=== PATIENT | female | born 1995 | race Caucasian/White ===

== ENCOUNTER 2016-12-02 19:29 | Emergency (ER) | payer MEDICARE | END 2016-12-02 22:10 | disposition home or self-care (01) | LOC: ER 19:29 | DX: O99.89 Other specified diseases and conditions complicating pregnancy, childbirth and the puerperium (principal); R10.84 Generalized abdominal pain; Z3A.16 16 weeks gestation of pregnancy | CPT/HCPCS: 36415 ==